=== PATIENT | female | born 1965 | race African-American/Black ===

== ENCOUNTER 2019-06-07 12:42 | Emergency (ER) | payer OTHER ==
[~2019-06-07] VITALS: Ht 157.5 cm; Wt 63.5 kg
[2019-06-07 12:44] VITALS: BP 100/59
--- NOTE | 2019-06-07 13:11 | NUR ---
PATIENT BIBA TO BED 4 AT THIS TIME.
--- NOTE | 2019-06-07 13:28 | NUR ---
brought in by ems from home pt c/o lower back/ right shoulder pain; extreme pain she is not able to move or open her eyes 2 wks also stating chest pain with dizziness x 1 wk moaning with ou closed---daughter with pt
--- NOTE | 2019-06-07 13:30 | NUR ---
Pt brought in by ems from home with daughter c/o lower back pain x 2 wks with right shoulder pain. Seen by her md last week rx baclofen. Pt also c/o chest pain with dizziness while sitting in [facility] [place] pt moaning , lethargic. Pt's right arm, shoulder and leg are tender to touch. VSS; PATIENT POSITIONED FOR COMFORT; HOB ELEVATED; BEDRAILS UP X2; BED DOWN. ER MD MADE AWARE OF PT STATUS.
--- NOTE | 2019-06-07 14:30 | NUR ---
Pt is in bed with vss. Family members are at bedside.
[2019-06-07] MEDS ORDERED: NACL 0.9% 1,000 ML IV SCH (14:31)
[2019-06-07 15:08] LABS: EOSINOPHILS % (AUTO) 0.3 % (0.0-4.0); HEMATOCRIT 33.2 % (36-48); LYMPHOCYTES # (AUTO) 0.9 K/uL (2.5-16.5); LYMPHOCYTES % (AUTO) 5.7 % (20.5-51.1); MEAN CORPUSCULAR HEMOGLOBIN 24 pg (27-31); MEAN CORPUSCULAR HGB CONC 33 g/dL (33-37); MEAN CORPUSCULAR VOLUME 72.5 fL (80-94); MONOCYTES # (AUTO) 0.2 K/uL (0.8-1.0); MONOCYTES % (AUTO) 1.5 % (1.7-9.3); NEUTROPHILS % (AUTO) 92.5 % (42.2-75.2); PLATELET COUNT (AUTO) 261 K/uL (140-450); RED BLOOD CELL COUNT(AUTO) 4.58 MIL/uL (4.20-5.40); RED CELL DISTRIBUTION WIDTH 18.4 % (11.6-13.7); WHITE BLOOD COUNT (AUTO) 16.2 K/uL (4.8-10.8)
[2019-06-07 15:22] LABS: ANION GAP 11.3 (8-16); CARBON DIOXIDE 29.9 mmol/L (21-32); CREATININE 1.2 mg/dL (0.6-1.3); POTASSIUM 4.2 mmol/L (3.5-5.1)
[2019-06-07 15:29] LABS: ALBUMIN 3.2 g/dL (3.4-5.0); TOTAL BILIRUBIN 0.3 mg/dL (0.0-1.0)
[2019-06-07 15:33] LABS: PROTHROMBIN TIME 9.8 secs (10.8-13.4)
--- NOTE | 2019-06-07 16:10 | NUR ---
Pt is taken to CT scan by dev technical mgr via [employer].
[2019-06-07] MEDS ORDERED: KETOROLAC 30 MG/ML VIAL IVP ONE (17:10)
[2019-06-07 17:11] LABS: APPEARANCE,URINE CLEAR (CLEAR); BILIRUBIN,URINE NEGATIVE (NEGATIVE); BLOOD, URINE NEGATIVE (NEGATIVE); COLOR,URINE YELLOW (YELLOW); LEUKOCYTE ESTERASE ,URINE NEGATIVE (NEGATIVE); NITRITE, URINE NEGATIVE (NEGATIVE); UGLUCOSE NEGATIVE (NEGATIVE)
--- NOTE | 2019-06-07 17:13 | NUR ---
Dr. Mohamud is evaluating pt at bedside.
[2019-06-07 17:26] LABS: BARBITURATE, URINE NEG. ng/ml (NEG <=200); BENZODIAZEPINE, URINE NEG. ng/mL (NEG <=200); CANNABINOID, URINE NEG. ng/mL (NEG <=50); OPIATE, URINE NEG. ng/mL (NEG <=2000)
--- NOTE | 2019-06-07 17:33 | NUR ---
X-RAY IS AT BEDSIDE.
[2019-06-07 17:43] LABS: COCAINE, URINE NEGATIVE ng/mL (NEG <=300); PHENCYCLIDINE SCREEN,URINE NEGATIVE ng/mL (NEG <=25)
--- NOTE | 2019-06-07 18:00 | NUR ---
Dr. Mohamud is evaluating pt at bedside.
--- NOTE | 2019-06-07 19:21 | NUR ---
Pt report given to CINDY Roth. Transfer of care at this time.
--- NOTE | 2019-06-07 20:47 | NUR ---
Patient is sleeping. Sister is at bedside.
--- NOTE | 2019-06-07 22:06 | NUR ---
SPOKE TO THE MOTHER OF THE PT, WAS UNDERSTANDING OF THE TRANSFER PROCESS. TRANSFER IS STILL PENDING PER JUSTIN. ER MADE AWARE OF STATUS.
--- NOTE | 2019-06-07 23:20 | NUR ---
SPOKE TO FAMILY MEMBER BASIA REGARDING PT STATUS FOR TRANSFER. WILL CALL [facility] AGAIN FOR AN UPDATE ON PT TRANSFER. BASIA EXPRESSED HER CONCERN REGARDING THE TIME FRAME OF THE TRANSFER AND LET HER KNOW JUSTIN IS WORKING ON ROOM ASSIGNMENT. ER MADE AWARE OF STATUS.
--- NOTE | 2019-06-07 23:23 | NUR ---
SPOKE TO CHUNG FROM [facility] REGARDING PT. CHUNG STATED THAT THEY HAVE BEEN WORKING ON THE TRANSFER SINCE 193 AND GOT THE FINAL ADMIT AT 2204. THE ROOM/BED WAS NOT ASSIGNED TILL 2314. ETA OF TRANSFER [facility] IS 40 MIN. PT WILL GO TO [facility] ([place] RM 1230. ADMIT MD IS Guero GAONA. # FOR REPORT IS [phone]. REPORT WILL BE GIVEN PRIOR TO TRANSFER. ER MD MADE AWARE.
--- NOTE | 2019-06-07 23:36 | NUR ---
PT. HAD A SOFT, FORMED STOOL AND 100 MLS OF YELLOW, CLEAR URINE.. DAUGHTERS AT BEDSIDE
--- NOTE | 2019-06-08 00:07 | NUR ---
[facility] AT BEDSIDE
--- NOTE | 2019-06-08 00:19 | NUR ---
PT TAKEN BY [facility] TO [facility] ROOM [address]
--- NOTE | 2019-06-08 00:30 | NUR ---
Patient to be transferred to [facility]. Is being transferred due to . Receiving facility has accepting physician and available space. ER physician has signed transfer form. Patient or responsible alliance party has agreed to transfer and signed form. Patient belongings inventoried and will be sent with patient. Copy of nursing notes, lab reports, EKG, Physicians Orders and X-rays to be sent with patient. Report called to at receiving facility. ambulance service has been called for transfer. ETA is .
[2019-06-08 00:31] VITALS: BP 137/79
== END 2019-06-08 00:19 | disposition short-term general hospital (02) ==
LOC: MED 12:42
DX: G93.40 Encephalopathy, unspecified (principal); M25.511 Pain in right shoulder; M25.551 Pain in right hip; D72.829 Elevated white blood cell count, unspecified
CPT/HCPCS: 36415; 70450; 71045; 72170; 73030; 73502; 80053; 80305; 81003; 81025; 82553; 83605; 84484; 85025; 85610; 85730; 87040; 87086; 93005; 96361; 96374; 99285; J1885; J7030; Q0092